=== PATIENT | male | born 1930 | race Caucasian/White ===

== ENCOUNTER → 2017-01-25 | Outpatient (CLI) | payer OTHER, BC | LOC: BHLMT 08:30 | PROVIDERS: ATTEND Internal Medicine | DX: R09.89 Other specified symptoms and signs involving the circulatory and respiratory systems (principal) | CPT/HCPCS: 93880-PO ==

== ENCOUNTER 2017-07-29 10:37 | Emergency (ER) | payer OTHER, BC ==
--- NOTE | 2017-07-29 10:58 | CPEKG ---
Heart Rate: 59 RR Interval: 1017 P-R Interval: 156 QRSD Interval: 82 QT Interval: 408 QTC Interval: 405 P [place]: -23 QRS [place]: 51 T Wave [place]: 48 EKG Severity - NORMAL ECG - EKG Impression: SINUS RHYTHM Electronically Signed By: Vilma Dotson 29-Jul-2017 14:11:41
--- NOTE | 2017-07-29 11:20 | EDPHY ---
HPI/HX/ROS/PE/MDM Narrative: CHIEF COMPLAINT: Abdominal and chest pain HISTORY OF PRESENT ILLNESS: The patient is an 86 y/o male with a history of two cardiac stents complaining of intermittent abdominal pain that is radiating to his right arm. For the past year he has had intermittent 15 second episodes of an "energy" starting in his abdomen and radiates into his right arm. Yesterday he had another episode and had a brief period of a fear of abandonment. This morning he had 3 episodes of this abnormal sensation, but did not lose consciousness. Per his , the patient is not having seizure activity or collapsing to the ground during these episodes. His also states that she can tell when the patient is experiencing these episodes due to the blank look on his face and demeanor. He does not become sweaty or grab his stomach. Denies speaking with his PCP regarding these episodes. Denies wearing a halter monitor in the past. Denies tobacco, alcohol, marijuana, or illicit drug use. Denies taking daily medications. 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 He is unsure if this is related to the abnormal sensation. No fever, chills, shortness of breath, palpitations, vomiting, diarrhea, urinary complaints, headache, lightheadedness. REVIEW OF SYSTEMS: Aside from elements discussed in the HPI, a comprehensive 10-point review of systems was reviewed and is negative. PAST MEDICAL HISTORY: Cardiac stents x 2, colon cancer, back surgery, hernia, perforated peptic ulcer SOCIAL HISTORY: at bedside, lives in [place], retired VITAL SIGNS: Reviewed by me GENERAL: Well-developed, well-nourished, resting comfortably in no respiratory distress. HEENT: Atraumatic. Eyes: No icterus, no injection. Mouth: moist mucous membranes. No erythema or lesions. Neck: supple with no adenopathy. LUNGS: Clear to auscultation bilaterally, no wheezes, rhonchi or rales. CARDIAC: Occasional premature beat, no rubs, murmurs or gallops. ABDOMEN: Soft, nontender, nondistended, bowel sounds normal. BACK: No CVA tenderness. EXTREMITIES: No trauma. No edema. Range of motion is normal throughout. NEURO: Alert and oriented, grossly nonfocal. SKIN: Warm and dry, no rash. PSYCHIATRIC: Normal mentation, no agitation. Portions of this note were transcribed by a medical scheduler. I personally performed a history, physical exam, medical decision making, and confirmed accuracy of information the transcribed note. ED Course: The patient is an 86 y/o male with a history of two cardiac stents complaining of an abnormal intermittent abdominal pain that is radiating to his right arm. On exam he has an occasional premature beat, but his exam is otherwise normal. Labs, EKG, head and abdominal CT ordered. 1056: 12-LEAD EKG: Please see the full report in [facility]. My interpretation: Normal sinus rhythm with a rate of 59 1253: Spoke with radiologist regarding patient's CT's. There are no acute findings for the head CT, the abdominal CT reveals constipation, three hypodense lesions in the liver, and an exophytic renal cortical cyst at the superior pole of the left kidney. 1308: Reassessed patient and discussed normal imaging and laboratory studies. I have advised him to follow up with a welding machine operator plasma arc and neurologist regarding this abnormal pain. Return precautions provided; patient is comfortable with this plan. MDM: Diff dx considered included but not limited to cardiac arrhythmias, intermittent hypertension, partial complex seizure, anxiety, hormonal imbalance. - Data Points Imaging Results: CT Head: Impression: No evidence for acute intracranial abnormality. Mild generalized cerebral atrophy. Results called and discussed with Dr. Vilma Dotson on July at 1253 hours. Dictated By: Alex Sainz MD CT Abd/Pelvis: Impression: 1. Constipation. No evidence for diverticulitis. No evidence for small bowel obstruction. Surgical clips are seen in the left pelvis from prior surgery. 2. Three hypodense lesions in the liver, which are nonspecific. These could be complex cysts or hemangiomata, although metastatic disease cannot be excluded. Recommend follow up or comparison to old studies. 3. Exophytic renal cortical cyst at the superior pole of the left kidney. 4. Degenerative change in the lower thoracic and lumbar spine and evidence of prior lumbar spine surgery. Results called and discussed with Dr. Vilma Dotson on July 29, 2017 at 1251 hours. Dictated By: Alex Sainz MD Imaging: Discussed imaging studies w/ yard caller Radiologist, I viewed and interpreted images myself Laboratory Results: Laboratory Results 07/29/17 11:00 07/29/17 11:00 General Time Seen by Provider: 07/29/17 11:14 Initial Vital Signs: Initial Vital Signs Temperature (C) 36.7 C 07/29/17 10:43 Heart Rate 61 07/29/17 10:43 Respiratory Rate 16 07/29/17 10:43 Blood Pressure 149/86 H 07/29/17 10:43 O2 Sat (%) 97 07/29/17 10:43 O2 Delivery Mode Room Air Allergies/Adverse Reactions: No Known Allergies Allergy (Unverified 12/23/13 07:44) Home Medications: Medication Instructions Recorded NK [No Known Home Meds] 12/23/13 Departure - Departure Disposition: Home, Routine, Self-Care Clinical Impression: Chest pain Qualifiers: Chest pain type: unspecified Qualified Code(s): R07.9 - Chest pain, unspecified Abdominal pain Qualifiers: Abdominal location: upper abdomen, unspecified Qualified Code(s): R10.10 - Upper abdominal pain, unspecified Condition: Good Instructions: Chest Pain (ED), Acute Abdominal Pain (ED) Additional Instructions: Follow-up with your primary doctor within 72 hours without fail to talk about this system complex. Return to the Emergency Department for fever, chest pain, shortness of breath, increasing pain or other worsening of condition. Follow up with a welding machine operator plasma arc for further testing, as soon as possible, within one week. As we discussed, it is impossible to fully rule out heart disease as the cause of your chest pain in the emergency department. We would be happy to reevaluate you and observe you in the hospital at any time. Follow up with a neurologist for further testing, as soon as possible, within one week. Referrals: Da Lynne MD [Primary Care Provider] - As per Instructions Kriss Preciado MD [Medical Doctor] - As per Instructions Zhang Barrera DO [Doctor of Osteopathy] - As per Instructions Report Scribed for: Vilma Dotson Report Scribed by: Farrah Rasheed Date of Report: 07/29/17 Time of Report: 11:20
[2017-07-29 11:51] LABS: PLATELET COUNT 187 10^3/uL (150-400)
[2017-07-29] MEDS ORDERED: IOPAMIDOL (ISOVUE-300) 100 ML BTL ONE (12:08)
[2017-07-29 13:55] VITALS: BP 132/64
== END 2017-07-29 13:53 | disposition home or self-care (01) ==
DX: R10.10 Upper abdominal pain, unspecified (principal); R07.9 Chest pain, unspecified; Z85.038 Personal history of other malignant neoplasm of large intestine; Z95.5 Presence of coronary angioplasty implant and graft
CPT/HCPCS: 70450; 74177; 93005; 99285; Q9967